=== PATIENT | male | born 1950 | race Caucasian/White ===

== ENCOUNTER → 2016-08-07 | Outpatient (CLI) | payer OTHER | LOC: FIMAGING 15:42 | PROVIDERS: ATTEND Family Medicine | DX: Z13.83 Encounter for screening for respiratory disorder NEC (principal); Z77.090 Contact with and (suspected) exposure to asbestos ==

== ENCOUNTER → 2016-08-15 | Outpatient (CLI) | payer OTHER | LOC: CIMAGING 10:16 | PROVIDERS: ATTEND Family Medicine | DX: J98.4 Other disorders of lung (principal); I25.10 Atherosclerotic heart disease of native coronary artery without angina pectoris; K80.20 Calculus of gallbladder without cholecystitis without obstruction | CPT/HCPCS: 71250-PO ==

== ENCOUNTER 2017-05-19 11:43 | Emergency (ER) | payer OTHER, MEDICARE ==
[2017-05-19 12:01] VITALS: BP 110/62; PULSE 66; RESP 18; TEMP 97.5; O2SAT 96
--- NOTE | 2017-05-19 12:47 | CPEKG ---
Heart Rate: 57 RR Interval: 1053 P-R Interval: 160 QRSD Interval: 114 QT Interval: 416 QTC Interval: 405 P [place]: 55 QRS [place]: 73 T Wave [place]: 53 EKG Severity - ABNORMAL ECG - EKG Impression: SINUS RHYTHM EKG Impression: NONSPECIFIC INTRAVENTRICULAR CONDUCTION DELAY Electronically Signed By: Samuel Caballero 19-May-2017 21:05:13
[2017-05-19] MEDS ORDERED: NS 500 ML IV ONE (13:22)
[2017-05-19 13:27] LABS: PLATELET COUNT 302 10^3/uL (150-400)
--- NOTE | 2017-05-19 13:28 | EDPHY ---
H & P Time Seen by Provider: 05/19/17 12:59 HPI/ROS: HPI Fatigue. This is a 67-year-old male who presents to the emergency department by private vehicle with his . This patient reports that he has had an upper respiratory infection for the last 3 weeks. He has had nasal congestion, clear rhinorrhea what he describes as a dry nonproductive cough. He reports he started feeling better 2-3 days ago. He reports today he felt well enough to go to the gym. When he was working out he felt unusually fatigued. He reports that after the workout he continued to feel fatigued and very low on energy. He was concerned that his blood pressure might be very low. He ate a power bar. He then started feeling better. Now on my evaluation he states that he feels fine. No associated chest pain, no shortness of breath, no palpitations. Denies any loss of sensation or weakness in his extremities. No syncope. No other complaints. ROS: Constitutional: No fever, no chills. As above. Eyes: No discharge. No changes in vision. ENT: No sore throat. No nasal congestion or rhinorrhea. Respiratory: No cough. No shortness of breath. Cardiac: No chest pain, no palpitations. Gastrointestinal: No abdominal pain, no vomiting, no diarrhea. Genitourinary: No hematuria. No dysuria or increased frequency with urination. Musculoskeletal: No back pain. No neck pain. No myalgias or arthralgias. Skin: No rashes. Neurological: No headache. No focal weakness or altered sensation. Past medical history: Denies any significant past medical history. He is not on any prescription medications. Social history: Nonsmoker. Here with his . No alcohol. Very physically active. Physical Exam: General Appearance: Alert, no distress. This patient is responding to questions appropriately and in full sentences. This patient appears well- hydrated and well-nourished. Eyes: Pupils equal and round no pallor or injection. No lid edema, erythema or injection. Respiratory: There are no retractions, lungs are clear to auscultation with good air movement bilaterally. Cardiovascular: Regular rate and rhythm. No murmur. Gastrointestinal: Abdomen is soft and nontender, no masses, bowel sounds normal. No focal tenderness at McBurney's point. No Denise sign. Neurological: Motor sensory function is grossly intact. Cranial nerves are normal. Gait is normal. Skin: Warm and dry, no rashes. Musculoskeletal: Neck is supple and nontender. Extremities are symmetrical. All joints range without pain or impingement. Psychiatric: No agitation. No depression. Database: EKG: EKG time is 12:46 p.m.; EKG shows a narrow complex normal sinus rhythm with a ventricular rate of 57. The IA, QRS, QT intervals are within normal limits. There are no ST-T wave changes indicative of ischemic or injury pattern. No evidence of right heart strain. No evidence of Brugada syndrome, WPW, hypertrophic cardiomyopathy. Interpreted by me. Imaging: Procedures: Emergency department course: Vital signs reviewed and are normal. An IV was placed. He was given 500 cc of IV normal saline. EKG obtained and reviewed by myself. 2:00 p.m., patient re-evaluated. Resting comfortably at this time. 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 He denies any complaints. Results of his blood work were discussed with him. His EKG was discussed. Emergency department workup is reassuring. The patient states that he feels fine at this time and is requesting discharge. He will follow up with his primary care physician on Saturday or Saturday of this week for re- evaluation. Return to emergency department precautions have been discussed with him. I feel that serious bacterial infection, pulmonary embolism, CVA, arrhythmia, anemia, acute coronary syndrome, hypoglycemia are unlikely. He was discharged in good condition with his . Differential Diagnosis: The differential diagnosis on this patient includes but is not limited to fatigue after upper respiratory infection. Pulmonary embolism, CVA, arrhythmia , acute coronary syndrome, serious bacterial infection unlikely. This represents a partial list of diagnoses considered. These considerations are based on history, physical exam, past history, reassessment and diagnostic testing. Smoking Status: Never smoked Constitutional: Initial Vital Signs Temperature (C) 36.4 C 05/19/17 11:56 Heart Rate 66 05/19/17 11:56 Respiratory Rate 18 05/19/17 11:56 Blood Pressure 110/62 05/19/17 11:56 O2 Sat (%) 96 05/19/17 11:56 O2 Delivery Mode Room Air Allergies/Adverse Reactions: No Known Allergies Allergy (Unverified 05/19/17 11:56) Home Medications: Medication Instructions Recorded NK [No Known Home Meds] 05/19/17 Medical Decision Making - Data Points Laboratory Results: 05/19/17 12:44 Nasal Influenza A PCR Pending Nasal Influenza B PCR Pending Departure - Departure Disposition: Home, Routine, Self-Care Clinical Impression: Fatigue Condition: Good Instructions: Fatigue (ED) Additional Instructions: Read and follow provided instructions. Follow-up with your primary care physician in 1-2 days for re-evaluation as discussed. Keep well hydrated. Eat regularly spaced meals. Ease into an exercise routine over the next 2 weeks. Return to the emergency department for worsening symptoms, chest pain, lightheadedness, fainting, shortness of breath or other serious concerns. Referrals: John Nevarez [Primary Care Provider] - As per Instructions
[2017-05-19 13:39] LABS: CREATINE KINASE 30 IU/L (0-224)
== END 2017-05-19 14:16 | disposition home or self-care (01) ==
DX: R53.83 Other fatigue (principal)

== ENCOUNTER → 2017-10-03 | Outpatient (CLI) | payer OTHER, MEDICARE | LOC: BHFA 13:15 | PROVIDERS: ATTEND Internal Medicine Cardiovascular Disease | DX: R07.9 Chest pain, unspecified (principal); I25.10 Atherosclerotic heart disease of native coronary artery without angina pectoris | CPT/HCPCS: 78452; 93017; 93306; A9500 ==

== ENCOUNTER → 2017-10-17 | Outpatient (CLI) | payer OTHER, MEDICARE | LOC: FIMAGING 10:12 | PROVIDERS: ATTEND Family Medicine | DX: Z13.820 Encounter for screening for osteoporosis (principal); M85.89 Other specified disorders of bone density and structure, multiple sites ==

== ENCOUNTER → 2018-07-25 | Outpatient (CLI) | payer OTHER, MEDICARE | LOC: FIMAGING 13:24 | PROVIDERS: ATTEND Family Medicine | DX: R06.00 Dyspnea, unspecified (principal); R07.81 Pleurodynia ==